=== PATIENT | male | born 1945 | race Caucasian/White ===

== ENCOUNTER → 2021-07-23 | Outpatient (CLI) | payer MEDICARE ==
--- NOTE | 2021-07-23 18:15 | RAD ---
CT scan of the neck without contrast 07/23/2021 CLINICAL HISTORY: Left superior neck swelling. TECHNIQUE: Unenhanced, contiguous, 0.625 mm axial sections were obtained through the neck. 3 mm recon structed sagittal, axial and coronal images were obtained. One or more of the following individualized dose reduction techniques were utilized for this study: 1. Automated exposure control. 2. Adjustment of the mA and/or kV according to patient size. 3. Use of iterative reconstruction technique. FINDINGS: The mucosal structures of the nasal pharynx, oral pharynx, hypopharynx and larynx are withi n normal limits. The thyroid gland is small and slightly heterogeneous. The submandibular and parotid glands are within normal limits. Mild mucosal thickening in seen scattered throughout the ethmoid air cells bilaterally. Mild mucosal thickening is seen involving the left maxillary sinus. No air-fluid level is seen. There is a small l eft mastoid effusion. the visualized orbits are within normal limits. Moderate atherosclerotic calcification is seen in the region of the carotid bifurcations. No abnormal soft tissue mass or fluid collection is seen within the neck. No cervical lymphadenopathy is seen. Degenerative changes are seen involving the uncovertebral and facet joints throughout the cervical di sc spaces. Mild to moderate degenerative changes are seen involving both TMJs. Images through the apices of both lungs demonstrate mild bullous emphysematous changes bilaterally. S mall areas of scarring are seen bilaterally. IMPRESSION: 1. Mild paranasal sinus and left mastoid disease. 2. No acute abnormality is seen. Electronically signed by: Michael Medrano MD (07/23/2021 6:13 PM) [id number]
== END ==
LOC: RAD 17:02
PROVIDERS: ATTEND Family Medicine
DX: I65.23 Occlusion and stenosis of bilateral carotid arteries (principal); J34.89 Other specified disorders of nose and nasal sinuses; J43.9 Emphysema, unspecified; M47.812 Spondylosis without myelopathy or radiculopathy, cervical region; R22.1 Localized swelling, mass and lump, neck
CPT/HCPCS: 70490